=== PATIENT | male | born 1950 | race Caucasian/White ===

== ENCOUNTER 2016-05-01 05:30 | Inpatient (IN) | payer BC, MEDICARE ==
[2016-04-30 15:02] VITALS: Ht 182.9 cm; Wt 90.9 kg
[2016-05-01] VITALS (33 sets, daily range): BP systolic 90–146; BP diastolic 37–82; PULSE 90–126; RESP 6–20
[~2016-05-01] VITALS: Ht 182.9 cm; Wt 90.9 kg
[~2016-05-01 05:30] MED LIST: ATOR10TA65 PO; DOXA2TAB61 PO; FERR325T5 PO; HYDR-906 PO; INSU100I27 SC; LISI10TA2 PO; METF500T PO; NOVO3I SC
[2016-05-01] MEDS ORDERED: CEFAZOLIN 1 GM INJ ONE (07:00)
[2016-05-01] MEDS ORDERED: GELATIN SIZE 100 SPONGE ONE (07:30)
[2016-05-01] MEDS ORDERED: HEPARIN 1000 UNITS/ML 10 ML INJ ONE ×2 (07:30→10:10)
[2016-05-01] MEDS ORDERED: PAPAVERINE 60 MG INJ ONE ×2 (07:30→11:04)
[2016-05-01] MEDS ORDERED: THROMBIN 5000 UNIT VIAL ONE (07:30)
[2016-05-01] MEDS ORDERED: HEPARIN 1000 UNITS/ML 10 ML INJ IRR ONE (07:50)
[2016-05-01] MEDS ORDERED: MIDAZOLAM 1 MG/ML 2 ML INJ ONE (07:52)
[2016-05-01] MEDS ORDERED: morphine SULFATE/PF (10 MG/10 ML) INJ ONE (07:52)
[2016-05-01] MEDS ORDERED: ONDANSETRON 4 MG INJ ONE (07:52)
[2016-05-01] MEDS ORDERED: PROPOFOL 100 ML ONE (07:52)
[2016-05-01] MEDS ORDERED: METOCLOPRAMIDE 10 MG INJ ONE (07:53)
[2016-05-01] MEDS ORDERED: GELATIN SIZE 100 SPONGE TOP ONE (08:50)
[2016-05-01] MEDS ORDERED: EPHEDrine SULFATE 50 MG/5 ML SYG ONE (08:50)
[2016-05-01] MEDS ORDERED: THROMBIN 5000 UNIT VIAL TOP ONE (08:50)
[2016-05-01] MEDS ORDERED: PHENYLephrine (100 MCG/ML) 5ML SYG ONE ×2 (09:23→10:58)
[2016-05-01] MEDS ORDERED: FENTAnyl 50 MCG/ML VIAL ONE (10:33)
[2016-05-01] MEDS ORDERED: PAPAVERINE 60 MG INJ INJ ONE (11:00)
[2016-05-01] MEDS ORDERED: MEPERIDINE 25 MG INJ IV PRN (11:30)
[2016-05-01] MEDS ORDERED: HYDROmorphONE 1 MG/ML SYG IV PRN ×3 (11:30)
[2016-05-01] MEDS ORDERED: METOCLOPRAMIDE 10 MG INJ IV PRN (11:30)
[2016-05-01] MEDS ORDERED: ONDANSETRON 4 MG INJ IV PRN ×3 (11:30→12:00)
[2016-05-01] MEDS ORDERED: NALOXONE (0.4 MG/ML) INJ IV PRN (11:30)
[2016-05-01] MEDS ORDERED: DIPHENHYDRAMINE 50 MG INJ IV PRN ×2 (11:30)
[2016-05-01] MEDS ORDERED: HYDROmorphONE (0.2 MG/ML) 10ML SYG IV PRN ×3 (11:30)
[2016-05-01] MEDS ORDERED: EPHEDrine SULFATE 50 MG/5 ML SYG IV PRN (11:30)
[2016-05-01] MEDS ORDERED: PROPOFOL 40 ML ONE (11:33)
[2016-05-01] MEDS ORDERED: LACTATED RINGER'S 500 ML IV ONE (11:40)
[2016-05-01] MEDS ORDERED: ACETAMINOPHEN 325 MG TAB PO PRN (12:00)
[2016-05-01] MEDS: INSULIN ASPART [NOVOLOG] 3 ML PEN SC SCH ×2 (12:00→19:20)
[2016-05-01] MEDS: metFORMIN 500 MG TAB PO SCH ×2 (12:00→19:20)
[2016-05-01] MEDS: ASPIRIN (EC) 325 MG TAB PO SCH (12:22)
--- NOTE | 2016-05-01 12:43 | PN ---
Date/Time of Note Date/Time of Note DATE: 05/01/16 TIME: 12:37 Assessment/Plan VTE Prophylaxis VTE Prophylaxis Intervention: SCD's (on plavix) Lines/Catheters IV Catheter Type (from Nrsg): A Line Urinary Cath still in place: Yes (IN OR) Subjective 24 Hr Interval Summary Free Text/Dictation had left leg bypass today for ongoing left great and second toe ischemia with gangrenous toe, had partial amputation of the second toe with bipass today awake and alert in recovery room, vs stable has diabetes, recently well controlled with insulina and oral agents, complicated by vitreous hemorrhage od lungs cdlear, heart rate ok, left leg warm, long incision from groin, foot wrapped Exam/Review of Systems Vital Signs Vitals Vital Signs Date Time Temp Pulse Resp B/P Pulse Ox O2 Delivery O2 Flow Rate FiO2 05/01/16 12:13 97.9 05/01/16 11:51 103 19 94/55 100 Mask 10.0 Results Results 24 hrs Laboratory Tests Test 05/01/16 06:14 Bedside Glucose 118 Medications Medications Current Medications Naloxone HCl (Narcan) 0.1 mg Q2M PRN IV FOR RESP RATE 8 OR LESS; Start 05/01/16 at 11:30; Stop 05/02/16 at 11:29 Hydromorphone HCl (Dilaudid) 1 mg Q3H PRN IV BREAKTHROUGH PAIN; Start 05/01/16 at 11:30; Stop 05/02/16 at 11:29 Hydromorphone HCl (Dilaudid) 0.2 mg Q3H PRN IV PAIN LEVEL 1-5; Start 05/01/16 at 11:30; Stop 05/02/16 at 11:29 Hydromorphone HCl (Dilaudid) 0.4 mg Q3H PRN IV PAIN LEVEL 6-10; Start 05/01/16 at 11:30; Stop 05/02/16 at 11:29 Diphenhydramine HCl (Benadryl) 25 mg Q6H PRN IV ITCHING; Start 05/01/16 at 11:30 ; Stop 05/02/16 at 11:29 Ondansetron HCl (Zofran Inj) 4 mg Q6H PRN IV NAUSEA AND/OR VOMITING; Start 05/01 at 11:30; Stop 05/02/16 at 11:29 Acetaminophen (Tylenol Tab) 650 mg Q6H PRN PO PAIN AND OR ELEVATED TEMP; Start 05/01/16 at 12:00 Acetaminophen/ Hydrocodone Bitart ([place] (5/325)) 1 tab Q6H PRN PO PAIN LEVEL 6 -10; Start 05/01/16 at 12:00 Morphine Sulfate (morphine) 2 mg Q2H PRN IV BREAKTHROUGH PAIN; Start 05/01/16 at 12:00 Ondansetron HCl 4 mg 4 mg Q6H PRN IV NAUSEA AND/OR VOMITING; Start 05/01/16 at 12:00 Potassium Chloride/Dextrose/ Sod Cl (D5-1/2ns + KCl 20 Meq) 1,000 ml @ 100 mls/ hr Q10H IV ; Start 05/01/16 at 11:40 Heparin Sodium (Porcine) (Heparin (5000 Units/0.5 ml)) 5,000 unit BID@07,19 SC ; Start 05/01/16 at 19:00 Atorvastatin Calcium (Lipitor) 10 mg QHS PO ; Start 05/01/16 at 21:00 Doxazosin Mesylate (Cardura) 6 mg HS PO ; Start 05/01/16 at 21:00 Insulin Detemir (Levemir) 15 unit QHS SC ; Start 05/01/16 at 21:00 Lisinopril (Zestril) 10 mg DAILY PO ; Start 05/02/16 at 09:00 Aspirin (Ecotrin) 325 mg DAILY PO Last administered on 05/01/16 12:22; Admin Dose 325 MG; Start 05/01/16 at 12:00 Clopidogrel Bisulfate (plaVIX) 75 mg DAILY PO ; Start 05/01/16 at 12:00 GIANNI GOSS MD May 01, 2016 12:43
[2016-05-01] MEDS: CLOPIDOGREL 75 MG TAB PO SCH (13:17)
[2016-05-01] MEDS: D5W-0.45 NACL + KCL 20 MEQ 1,000 ML IV SCH ×3 (14:00→23:24)
--- NOTE | 2016-05-01 14:58 | OPR ---
DATE OF OPERATION: 05/01/2016 PREOPERATIVE DIAGNOSIS: Left second toe gangrene. POSTOPERATIVE DIAGNOSIS: Left second toe gangrene. PROCEDURE PERFORMED: Left popliteal to posterior tibial bypass using nonreverse greater saphenous v ein harvested from the left thigh. SURGEON: Alejandro Mederos MD IT ARCHITECT: Dr. Victor Manuel Hurtado ANESTHESIA: Spinal anesthesia. ESTIMATED BLOOD LOSS: 100 mL. COMPLICATIONS: There were no intraprocedural complications. INDICATIONS: This is a 65-year-old diabetic gentleman with peripheral vascular disease. He has a g angrenous left second toe. He had a previous arterial percutaneous intervention that initially was successful, but the toe demarcated. Tibial vessels have now re-occluded and I recommended bypass fro m the popliteal to PT prior to amputating the toe, which he came in for today. DESCRIPTION OF PROCEDURE: The patient was brought to the operating room and placed on the table in the supine position. The left leg was prepped and draped in the usual sterile fashion. I evaluated the left great saphenous vein previously and it looked to be too small, but I checked it again afte r he had gotten a spinal and was sedated and the vein was a good caliber in the thigh, was a little bit small in the calf and sort of in the mid calf. I thought it would be adequate to go from t he popliteal to the PT. He has some mild disease in the popliteal, which I had angioplastied recent ly, and a little stenosis at the adductor that is calcified, but fairly mild. He had a good poplite al pulse so I decided to use the vein rather than using a [place] to go from higher up. Once he wa s prepped and draped, I began by exposing the posterior tibial artery at the ankle. I made an incisi on over the artery and carefully dissected down through the subcutaneous tissue using electrocautery . I identified the posterior tibial artery. It was actually soft, was a little calcified, but it wa s easily clampable and soft. I then went through the medial calf and made an incision over the grea t saphenous vein at the medial calf and carefully dissected out the great saphenous vein down to the mid calf and ligated all the side branches. I then cut the fascia overlying the calf muscles and r etracted them posteriorly, entering the popliteal space. I then carefully dissected out the poplite al artery. It had a very nice pulse. It was a good caliber and not diseased. Then we proceeded to harvest the vein. We harvested the vein from, again, from the mid calf all the way up to the groin , ligating all the side branches with 2-0 or 3-0 silk ties and dividing them. At the saphenofemoral junction a clamp was placed across the base of the saphenofemoral junction and the vein was t ransected and then the venotomy was oversewn with a 5-0 Prolene suture in a running semivascular mukund gical fashion. Once the vein was fully harvested I flushed from below. I found a couple of side bra nches that I had missed and I tied those off with 3-0 silk ties. The vein appeared to be a reasonabl e caliber. It was a little bit small distally, probably 2.5 to 3 mm, but a good 3 to 4 mm proximall y, so I then created a tunnel between my 2 incisions in the upper calf and at the ankle using a Craw javier clamp and I left a red rubber catheter in the tract. I gave the patient 3,000 units of heparin intravenously. We then began with the popliteal artery anastomosis. I clamped the popliteal arter y proximally and distally and made a cm-long anterior arteriotomy. I spatulated the proximal end of the vein to fit the arteriotomy. I cut the first valve under direct vision. I then anastomosed th e proximal end of the vein. The side of the popliteal artery using a 6-0 Prolene suture in a runnin g standard vascular surgical fashion. I removed the clamps after backbleeding and flushing and ther e was a good pulse in the graft about 10 cm distal, where the valves were incompetent more proximall y and incompetent distally. I then passed the [place] valvulotome from below. I made about 3 pass es and cut all the valves. There was good flow out the end of the vein. Again, it was small and a l ittle bit of spasm. I passed a 3-[place] Veronika several times just to dilate it up a little bit mor e and again, it was small, but good. I then brought it through the tract, making sure I did not twi st it anywhere. I then clamped the posterior tibial artery proximally and distally, and made an ant erior arteriotomy about 1 cm in length. I spatulated the end of the vein to fit the arteriotomy and then anastomosed the end of the vein to the side of the artery, again using 6-0 Prolene suture in a running standard vascular surgical fashion. I backbled and flushed. I passed the 1.5-mm dilator di fiona after removing the clamp and got good backflow from the posterior tibial distally. I complet ed the anastomosis, removed all the clamps. I listened with the Doppler and there was a nice signal in the posterior tibial, which essentially went flat and monophasic when the graft was clamped. I was happy with the results. At this point I then closed all the skin incisions in 2 layers using an inner layer of 3-0 Vicryl and an outer layer of surgical lucía for all the incisions except the a nkle incision, which I closed with 3-0 nylon interrupted vertical mattress sutures. Sterile dressin gs were applied to all the wounds. I then amputated the second toe. I took a 15 blade and cut right where the necrosis stopped. I disarticulated at the metatarsal head and just removed all the necro tic tissue. I then used a rongeur to just cut away all the remaining necrotic tissue and infected s tuff from the base of the wound. There was good bleeding. I then packed with iodoform gauze and I then closed it. The foot was then wrapped with gauze and Kerlix. He was transferred to the recover y room in stable condition. He tolerated the procedure well, without any complications. Dictated By: ALEJANDRO MARCUM/KAREN Conf#: [id number] DID#: [id number] CC: GIANNI GOSS MD; CLARICE JUNIOR DPM;*EndCC*
--- NOTE | 2016-05-01 18:45 | RADRPT ---
Vent Rate: 75 bpm RR Interval: 0 msec DC Interval: 166 msec QRS Duration: 80 msec QT Interval: 394 msec QTC Interval: 439 msec P-R-T Ralls: 46 - 63 - 55 degrees Normal sinus rhythm Normal ECG Electronically Signed By: Ben Guerrero [id number]
[2016-05-01] MEDS: HEPARIN 5,000 UNIT/0.5 ML SYG SC SCH (20:40)
[2016-05-01] MEDS ORDERED: DOXAZOSIN 2 MG TAB PO SCH (21:00)
[2016-05-01] MEDS ORDERED: ATORVASTATIN 10 MG TAB PO SCH (21:00)
[2016-05-01] MEDS: INSULIN DETEMIR [LEVEMIR] 3ML CART SC SCH (21:16)
[2016-05-02] VITALS (33 sets, daily range): BP systolic 105–160; BP diastolic 41–87; PULSE 84–118; RESP 13–23
[2016-05-02] MEDS: HEPARIN 5,000 UNIT/0.5 ML SYG SC SCH ×2 (06:35→18:11)
[2016-05-02 06:42] LABS: POTASSIUM 4.4 mmol/L (3.5-5.1)
[2016-05-02 06:45] LABS: CALCIUM 8.2 mg/dl (8.4-10.2); CREATININE 0.64 mg/dl (0.61-1.24)
[2016-05-02 07:44] LABS: WHITE BLOOD COUNT 5.1 10^3/ul (4.8-10.8)
[2016-05-02 07:45] LABS: BASOPHILS % 0.4 % (0.0-2.0); EOSINOPHILS % 5.1 % (0.0-7.0); HEMATOCRIT 26.6 % (42.0-52.0); HEMOGLOBIN 8.2 g/dl (14.0-18.0); MEAN CORPUSCULAR HEMOGLOBIN 26.3 pg (29.0-33.0); MEAN CORPUSCULAR HGB CONC 30.8 g/dl (32.0-37.0); MEAN CORPUSCULAR VOLUME 85.3 fl (82.0-101.0); MEAN PLATELET VOLUME 10.6 fl (7.4-10.4); MONOCYTES % 10.3 % (0.0-11.0); NEUTROPHILS % 68.8 % (39.0-77.0); PLATELET COUNT 229 10^3/UL (140-440); RED BLOOD COUNT 3.12 10^6/ul (4.70-6.10); RED CELL DISTRIBUTION WIDTH 16.3 % (11.5-14.5); UNCORRECTED WBC 5.1 10^3/ul (4.8-10.8)
[2016-05-02 07:46] LABS: EOSINOPHILS # 0.3 10^3/ul (0.0-0.5); LYMPHOCYTES # 0.8 10^3/ul (0.8-2.9); MONOCYTE # 0.5 10^3/ul (0.3-0.9); NEUTROPHIL # 3.5 10^3/ul (1.6-7.5)
--- NOTE | 2016-05-02 07:53 | CONS ---
Date/Time of Note Date/Time of Note DATE: 05/02/16 TIME: 07:45 Assessment/Plan Assessment/Plan Problems: (1) Aftercare following surgery Status: Acute Comment: He is status post vascular bypass with amputation of the toe. At this time he is doing well and should continue on this and she can be transferred out of the intensive care unit as per the vascular surgeon Dr. Linares (2) Overweight (BMI 25.0-29.9) Status: Chronic Comment: Noted (3) Hyperlipidemia associated with type 2 diabetes mellitus Status: Chronic Comment: Continue with statin therapy aggressively (4) Type 2 diabetes mellitus with diabetic polyneuropathy Status: Chronic Comment: Continue his medications and just to bring him into goal range Qualifiers: Qualified Code: E11.42 - Type 2 diabetes mellitus with diabetic polyneuropathy, with long-term current use of insulin (5) Peripheral vascular disease due to secondary diabetes mellitus Status: Chronic Comment: Noted is been bypass will do vigorous risk factor modification. (6) BPH (benign prostatic hyperplasia) Status: Chronic Comment: Continue with treatment. Qualifiers: Qualified Code: N40.1 - Benign non-nodular prostatic hyperplasia with lower urinary tract symptoms (7) Essential hypertension Status: Chronic Comment: Continue with treatment. Consultation Date/Type/Reason Admit Date/Time May 01, 2016 at 05:30 Date of Consultation: May 01, 2016 Type of Consultation: Internal medicine Reason for Consultation Patient with multiple medical problems undergoing vascular intervention Referring Provider: ALEJANDRO LINARES MD Hx of Present Illness 65-year-old male with a prior history of poorly controlled diabetes with multiple complications. He has known peripheral vascular disease especially affecting the left lower extremity. He had undergone a percutaneous intervention of the left lower leg arterially however developed gangrene requiring further intervention and the percutaneous did not have a durable outcome. He was brought in and operated on is now in the intensive care unit postoperatively. Constitutional: no complaints (Denies fever chills or sweats) Eyes: no complaints (No new complaints please note he has a history of diabetic eye disease especially in the right eye) ENT: no complaints (No complaints) Respiratory: no complaints (Denies shortness of breath pleuritic type chest pain wheezing etc.) Cardiovascular: no complaints (No chest pain pressure neck pain lower jaw pain etc. no palpitations no orthopnea no PND) Gastrointestinal: no complaints Genitourinary: no complaints (Please note he does have BPH symptoms with AUA score of roughly 8 while on medications he is not clear what his medications are ) Musculoskeletal: no complaints, other (He reports his left leg postoperative feels heavy but is able to move all extremities) Skin: no complaints (Denies any skin issues although he does have onychomycosis ) Neurologic: no complaints Endocrine: no complaints Lymphatic: no complaints Psychological: nl mood/affect, no complaints Immunologic: no complaints Past Medical History History of cecal cancer-status post resection; overweight; diabetes mellitus type 2; hyperlipidemia; hypertension; BPH; keloid scar former; diabetic retinopathy with hemorrhage OD; lumbar disc disease; cervical spine disc disease ; peripheral vascular disease; please note no history of heart disease and he had an echocardiogram in the last 4 months that was perfectly normal Medical History: diabetes, high cholesterol, hypertension Past Surgical History Status post cecal colectomy; status post percutaneous intervention for vascular disease Past Surgical Hx: angioplasty (Noncardiac) Family History Significant Family History: diabetes, hypertension Social History Alcohol Use: none Smoking Status: Never smoker Drug Use: none Other Social History Levemir insulin; Humalog insulin; iron sulfate; hydrocodone as needed medication list; atorvastatin; doxazosin; metformin; lisinopril; Exam/Review of Systems Vital Signs Vitals Vital Signs Date Time Temp Pulse Resp B/P Pulse Ox O2 Delivery O2 Flow Rate FiO2 05/02/16 06:00 99.6 110 18 118/46 95 Room Air 05/01/16 17:00 2.0 Intake and Output 05/01/16 05/01/16 05/02/16 15:00 23:00 07:00 Intake Total 2100 ml 1440 ml 700 ml Output Total 525 ml 490 ml 390 ml Balance 1575 ml 950 ml 310 ml Results Result Diagram: 05/02/16 0400 Results 24 hrs Laboratory Tests Test 05/01/16 17:07 05/01/16 20:33 05/02/16 04:00 Bedside Glucose 178 269 H Anion Gap 10 Blood Urea Nitrogen 14 Calcium Level 8.2 L Carbon Dioxide Level 27 Chloride Level 105 Creatinine 0.64 Glucose Level 238 H Potassium Level 4.4 Sodium Level 138 Medications Medications Current Medications Naloxone HCl (Narcan) 0.1 mg Q2M PRN IV FOR RESP RATE 8 OR LESS; Start 05/01/16 at 11:30; Stop 05/02/16 at 11:29 Hydromorphone HCl (Dilaudid) 1 mg Q3H PRN IV BREAKTHROUGH PAIN; Start 05/01/16 at 11:30; Stop 05/02/16 at 11:29 Hydromorphone HCl (Dilaudid) 0.2 mg Q3H PRN IV PAIN LEVEL 1-5; Start 05/01/16 at 11:30; Stop 05/02/16 at 11:29 Hydromorphone HCl (Dilaudid) 0.4 mg Q3H PRN IV PAIN LEVEL 6-10; Start 05/01/16 at 11:30; Stop 05/02/16 at 11:29 Diphenhydramine HCl (Benadryl) 25 mg Q6H PRN IV ITCHING; Start 05/01/16 at 11:30 ; Stop 05/02/16 at 11:29 Ondansetron HCl (Zofran Inj) 4 mg Q6H PRN IV NAUSEA AND/OR VOMITING; Start 05/01 at 11:30; Stop 05/02/16 at 11:29 Acetaminophen (Tylenol Tab) 650 mg Q6H PRN PO PAIN AND OR ELEVATED TEMP; Start 05/01/16 at 12:00 Acetaminophen/ Hydrocodone Bitart ([place] (5/325)) 1 tab Q6H PRN PO PAIN LEVEL 6 -10; Start 05/01/16 at 12:00 Morphine Sulfate (morphine) 2 mg Q2H PRN IV BREAKTHROUGH PAIN; Start 05/01/16 at 12:00 Ondansetron HCl 4 mg 4 mg Q6H PRN IV NAUSEA AND/OR VOMITING; Start 05/01/16 at 12:00 Potassium Chloride/Dextrose/ Sod Cl (D5-1/2ns + KCl 20 Meq) 1,000 ml @ 100 mls/ hr Q10H IV Last administered on 05/01/16 23:24; Admin Dose 100 MLS/HR; Start at 11:40 Heparin Sodium (Porcine) (Heparin (5000 Units/0.5 ml)) 5,000 unit BID@07,19 SC Last administered on 05/02/16 06:35; Admin Dose 5,000 UNIT; Start 05/01/16 at 19:00 Atorvastatin Calcium (Lipitor) 10 mg QHS PO Last administered on 05/01/16 20:38 ; Admin Dose 10 MG; Start 05/01/16 at 21:00 Doxazosin Mesylate (Cardura) 6 mg HS PO Last administered on 05/01/16 21:14; Admin Dose 6 MG; Start 05/01/16 at 21:00 Insulin Detemir (Levemir) 15 unit QHS SC Last administered on 05/01/16 21:16; Admin Dose 15 UNIT; Start 05/01/16 at 21:00 Lisinopril (Zestril) 10 mg DAILY PO ; Start 05/02/16 at 09:00 Aspirin (Ecotrin) 325 mg DAILY PO Last administered on 05/01/16 12:22; Admin Dose 325 MG; Start 05/01/16 at 12:00 Clopidogrel Bisulfate (plaVIX) 75 mg DAILY PO Last administered on 05/01/16 13: 17; Admin Dose 75 MG; Start 05/01/16 at 12:00 NARA LYNN MD May 02, 2016 07:53
[2016-05-02] MEDS: HYDROCODONE/APAP (5/325) TAB PO PRN ×2 (08:23→17:35)
[2016-05-02] MEDS: CLOPIDOGREL 75 MG TAB PO SCH (08:23)
[2016-05-02] MEDS: metFORMIN 500 MG TAB PO SCH ×3 (08:23→17:35)
[2016-05-02] MEDS: SOD CHLORIDE 0.45% 1,000 ML IV SCH ×2 (08:26→20:33)
[2016-05-02] MEDS: INSULIN ASPART [NOVOLOG] 3 ML PEN SC SCH ×3 (08:32→17:26)
[2016-05-02] MEDS: ASPIRIN (EC) 325 MG TAB PO SCH (09:00)
[2016-05-02] MEDS ORDERED: LISINOPRIL 10 MG TAB PO SCH ×2 (09:00→21:00)
[2016-05-02] MEDS ORDERED: ASPIRIN (EC) 325 MG TAB PO SCH (09:00)
--- NOTE | 2016-05-02 10:42 | PN ---
Date/Time of Note Date/Time of Note DATE: 05/02/16 TIME: 10:39 Assessment/Plan Lines/Catheters IV Catheter Type (from Nrs): A Line [place] in Place (from Nrs): Yes Assessment/Plan Chief Complaint/Hosp Course Doing well s/p L pop-PT bypass and 2nd toe amputation, 2+ graft pulse, foot well perfused - remove A-line and heplock IV - OK to tx to tele floor in main tower - PT / OK to weight bear - Dr. Montalvo to see regarding revision of toe amputation Problems: Subjective 24 Hr Interval Summary c/o incisional pain and heaviness in the leg. no pain in the foot. Exam/Review of Systems Vital Signs Vitals Vital Signs Date Time Temp Pulse Resp B/P Pulse Ox O2 Delivery O2 Flow Rate FiO2 05/02/16 09:45 109 18 129/46 95 05/02/16 09:00 97.6 05/02/16 06:00 Room Air 05/01/16 17:00 2.0 Intake and Output 05/01/16 05/01/16 05/02/16 15:00 23:00 07:00 Intake Total 2100 ml 1440 ml 700 ml Output Total 525 ml 490 ml 390 ml Balance 1575 ml 950 ml 310 ml Exam Free Text/Dictation L leg dressings intact, some staning at the calf but no hematoma. 2+ graft pulse , L foot / toes warm / pink and hyperemic Results Result Diagram: 05/02/1639905/02/16399 ALEJANDRO LINARES MD May 02, 2016 10:42
[2016-05-02] MEDS: TERBINAFINE 250 MG TAB PO SCH ×2 (11:44→20:27)
[2016-05-02] MEDS: morphine 2 MG INJ IV PRN ×2 (11:46→23:20)
[2016-05-02] MEDS ORDERED: GLUCOSE GEL 15 GRAM TUBE PO PRN ×2 (15:30)
[2016-05-02] MEDS ORDERED: GLUCAGON 1 MG INJ IM PRN (15:30)
[2016-05-02] MEDS ORDERED: GLUCOSE GEL 15 GRAM TUBE BUCCAL PRN (15:30)
[2016-05-02] MEDS ORDERED: DEXTROSE 50% 50 ML SYRINGE IV PRN ×2 (15:30)
[2016-05-02] MEDS: DOXAZOSIN 4 MG TAB PO SCH (20:26)
[2016-05-02] MEDS: ATORVASTATIN 20 MG TAB PO SCH (20:27)
[2016-05-02] MEDS: INSULIN DETEMIR [LEVEMIR] 3ML CART SC SCH (20:33)
[2016-05-03] VITALS (18 sets, daily range): BP systolic 125–171; BP diastolic 52–84; PULSE 83–112; RESP 11–28
[2016-05-03] MEDS: HYDROCODONE/APAP (5/325) TAB PO PRN ×4 (03:09→23:08)
[2016-05-03] MEDS: HEPARIN 5,000 UNIT/0.5 ML SYG SC SCH ×2 (06:41→21:01)
[2016-05-03 07:29] LABS: BASOPHILS % 0.5 % (0.0-2.0); EOSINOPHILS # 0.5 10^3/ul (0.0-0.5); EOSINOPHILS % 9.9 % (0.0-7.0); HEMATOCRIT 24.8 % (42.0-52.0); HEMOGLOBIN 8.3 g/dl (14.0-18.0); LYMPHOCYTES # 1.1 10^3/ul (0.8-2.9); MEAN CORPUSCULAR HEMOGLOBIN 26.9 pg (29.0-33.0); MEAN CORPUSCULAR HGB CONC 33.3 g/dl (32.0-37.0); MEAN CORPUSCULAR VOLUME 80.9 fl (82.0-101.0); MONOCYTE # 0.5 10^3/ul (0.3-0.9); MONOCYTES % 10.9 % (0.0-11.0); NEUTROPHIL # 2.6 10^3/ul (1.6-7.5); NEUTROPHILS % 55.7 % (39.0-77.0); PLATELET COUNT 220 10^3/UL (140-440); RED BLOOD COUNT 3.07 10^6/ul (4.70-6.10); RED CELL DISTRIBUTION WIDTH 17.9 % (11.5-14.5); UNCORRECTED WBC 4.6 10^3/ul (4.8-10.8); WHITE BLOOD COUNT 4.6 10^3/ul (4.8-10.8)
[2016-05-03 07:35] LABS: CONDITION 1; LH ANALYZER COMMENTS 1
[2016-05-03 08:07] LABS: CREATININE 0.63 mg/dl (0.61-1.24)
[2016-05-03 08:08] LABS: CALCIUM 8.5 mg/dl (8.4-10.2)
[2016-05-03] MEDS: ASPIRIN (EC) 325 MG TAB PO SCH (08:23)
[2016-05-03] MEDS: TERBINAFINE 250 MG TAB PO SCH ×2 (08:23→20:48)
[2016-05-03] MEDS: metFORMIN 500 MG TAB PO SCH ×3 (08:23→17:44)
[2016-05-03] MEDS: CLOPIDOGREL 75 MG TAB PO SCH (08:23)
[2016-05-03] MEDS: INSULIN ASPART [NOVOLOG] 3 ML PEN SC SCH ×3 (08:25→18:41)
--- NOTE | 2016-05-03 11:55 | PN ---
Date/Time of Note Date/Time of Note DATE: 05/03/16 TIME: 11:53 Assessment/Plan VTE Prophylaxis VTE Prophylaxis Intervention: LMWH Lines/Catheters IV [facility] Type (from [facility]): Peripheral IV Urinary Cath still in place: Yes Reason Cath still needed: other (indicate) Assessment/Plan Chief Complaint/Hosp Course 65-year-old male with a prior history of poorly controlled diabetes with multiple complications. He has known peripheral vascular disease especially affecting the left lower extremity. He had undergone a percutaneous intervention of the left lower leg arterially however developed gangrene requiring further intervention and the percutaneous did not have a durable outcome. He was brought in and operated on is now in the intensive care unit postoperatively. Problems: (1) Hyperlipidemia associated with type 2 diabetes mellitus Status: Chronic Comment: On statin therapy to protect the neurovascular bypass (2) Essential hypertension Status: Chronic Comment: Adequate control. (3) BPH (benign prostatic hyperplasia) Status: Chronic Comment: Noted and stable. Will DC Albarran Qualifiers: Prostatic enlargement morphology: non-nodular Lower urinary tract symptom presence: symptoms present Qualified Code: N40.1 - Benign non-nodular prostatic hyperplasia with lower urinary tract symptoms (4) Peripheral vascular disease due to secondary diabetes mellitus Status: Chronic Comment: Status post bypass. As per Dr. Mederos note will get Dr. Montalvo to evaluate for revision of the amputation (5) Anemia due to blood loss, chronic Status: Chronic Comment: Noted. (6) Type 2 diabetes mellitus with diabetic polyneuropathy Status: Chronic Comment: Good control Qualifiers: Diabetes mellitus joint terminal attack controller insulin use: with joint terminal attack controller use Qualified Code : E11.42 - Type 2 diabetes mellitus with diabetic polyneuropathy, with long- term current use of insulin Subjective 24 Hr Interval Summary Free Text/Dictation Patient resting and now up in telemetry from ICU. Constitutional: no complaints (No fever chills or sweats) Respiratory: no complaints Cardiovascular: no complaints Gastrointestinal: no complaints Exam/Review of Systems Vital Signs Vitals Vital Signs Date Time Temp Pulse Resp B/P Pulse Ox O2 Delivery O2 Flow Rate FiO2 05/03/16 11:19 98.0 89 20 144/76 97 05/03/16 11:00 Room Air 05/01/16 17:00 2.0 Intake and Output 05/02/16 05/02/16 05/03/16 15:00 23:00 07:00 Intake Total 1350 ml 450 ml Output Total 1400 ml 1050 ml Balance -50 ml -600 ml Exam Constitutional: alert, oriented Respiratory: clear to auscultation, normal air movement Cardiovascular: nl pulses, regular rate and rhythm Results Result Diagram: 05/03/16 0705 05/03/16 0705 Results 24 hrs Laboratory Tests Test 05/02/16 17:18 05/02/16 20:30 05/03/16 07:05 05/03/16 07:48 Bedside Glucose 150 150 109 Anion Gap 11 Basophils # 0.0 Basophils % 0.5 Blood Morphology Comment Blood Urea Nitrogen 10 Calcium Level 8.5 Carbon Dioxide Level 29 Chloride Level 104 Creatinine 0.63 Eosinophils # 0.5 Eosinophils % 9.9 H Glucose Level 99 # Hematocrit 24.8 L Hemoglobin 8.3 L Lymphocytes # 1.1 Lymphocytes % 23.0 Mean Corpuscular Hemoglobin 26.9 L Mean Corpuscular Hemoglobin Concent 33.3 Mean Corpuscular Volume 80.9 L Mean Platelet Volume 8.0 # Monocytes # 0.5 Monocytes % 10.9 Neutrophils # 2.6 Neutrophils % 55.7 Nucleated Red Blood Cells # 0.0 Nucleated Red Blood Cells % 0.0 Platelet Count 220 Potassium Level 4.0 Red Blood Count 3.07 L Red Cell Distribution Width 17.9 H Sodium Level 140 White Blood Count 4.6 L Medications Medications Current Medications Acetaminophen (Tylenol Tab) 650 mg Q6H PRN PO PAIN AND OR ELEVATED TEMP; Start 05/01/16 at 12:00 Acetaminophen/ Hydrocodone Bitart ([place] (5/325)) 1 tab Q6H PRN PO PAIN LEVEL 6 -10 Last administered on 05/03/16 08:23; Admin Dose 1 TAB; Start 05/01/16 at 12: 00 Morphine Sulfate (morphine) 2 mg Q2H PRN IV BREAKTHROUGH PAIN Last administered on 05/02/16 23:20; Admin Dose 2 MG; Start 05/01/16 at 12:00 Ondansetron HCl (Zofran Inj) 4 mg Q6H PRN IV NAUSEA AND/OR VOMITING; Start 05/01 at 12:00 Heparin Sodium (Porcine) (Heparin (5000 Units/0.5 ml)) 5,000 unit BID@ SC Last administered on 05/03/16 06:41; Admin Dose 5,000 UNIT; Start 05/01/16 at 19:00 Insulin Detemir (Levemir) 15 unit QHS SC Last administered on 05/02/16 20:33; Admin Dose 15 UNIT; Start 05/01/16 at 21:00 Aspirin (Ecotrin) 325 mg DAILY PO Last administered on 05/03/16 08:23; Admin Dose 325 MG; Start 05/01/16 at 12:00 Clopidogrel Bisulfate (plaVIX) 75 mg DAILY PO Last administered on 05/03/16 08: 23; Admin Dose 75 MG; Start 05/01/16 at 12:00 Atorvastatin Calcium (Lipitor) 20 mg DAILY@21 PO Last administered on 05/02/16 20:27; Admin Dose 20 MG; Start 05/02/16 at 21:00 Doxazosin Mesylate (Cardura) 8 mg 21 PO Last administered on 05/02/16 20:26; Admin Dose 8 MG; Start 05/02/16 at 21:00 Lisinopril 10 mg 10 mg QHS PO Last administered on 05/02/16 20:27; Admin Dose 10 MG; Start 05/02/16 at 21:00 Sodium Chloride (1/2 NS) 1,000 ml @ 50 mls/hr Q20H IV Last administered on 05/02 20:33; Admin Dose 50 MLS/HR; Start 05/02/16 at 08:00 Terbinafine HCl (Lamisil) 250 mg BID PO Last administered on 05/03/16 08:23; Admin Dose 250 MG; Start 05/02/16 at 09:00; Stop 05/09/16 at 08:59 Miscellaneous Information 1 ea NOTE XX ; Start 05/02/16 at 15:30 Glucose (Glutose) 15 gm Q15M PRN PO DECREASED GLUCOSE; Start 05/02/16 at 15:30 Glucose (Glutose) 22.5 gm Q15M PRN PO DECREASED GLUCOSE; Start 05/02/16 at 15:30 Dextrose (D50w Syringe) 25 ml Q15M PRN IV DECREASED GLUCOSE; Start 05/02/16 at 15:30 Dextrose (D50w Syringe) 50 ml Q15M PRN IV DECREASED GLUCOSE; Start 05/02/16 at 15:30 Glucagon (Glucagen) 1 mg Q15M PRN IM DECREASED GLUCOSE; Start 05/02/16 at 15:30 Glucose (Glutose) 15 gm Q15M PRN BUCCAL DECREASED GLUCOSE; Start 05/02/16 at 15: 30 NARA LYNN MD May 03, 2016 11:55
[2016-05-03] MEDS: LISINOPRIL 20 MG TAB PO SCH (20:49)
[2016-05-03] MEDS: ATORVASTATIN 20 MG TAB PO SCH (20:50)
[2016-05-03] MEDS: DOXAZOSIN 4 MG TAB PO SCH (20:50)
[2016-05-03] MEDS: INSULIN DETEMIR [LEVEMIR] 3ML CART SC SCH (21:38)
[2016-05-04] VITALS (13 sets, daily range): BP systolic 133–168; BP diastolic 68–77; PULSE 78–92; RESP 16–20
[2016-05-04] MEDS: HYDROCODONE/APAP (5/325) TAB PO PRN ×3 (06:39→21:48)
[2016-05-04 06:52] LABS: BASOPHILS % 0.5 % (0.0-2.0); EOSINOPHILS # 0.6 10^3/ul (0.0-0.5); EOSINOPHILS % 12.1 % (0.0-7.0); HEMATOCRIT 25.6 % (42.0-52.0); HEMOGLOBIN 8.5 g/dl (14.0-18.0); LYMPHOCYTES # 1.1 10^3/ul (0.8-2.9); LYMPHOCYTES % 23.3 % (15.0-51.0); MEAN CORPUSCULAR HEMOGLOBIN 27.1 pg (29.0-33.0); MEAN CORPUSCULAR HGB CONC 33.3 g/dl (32.0-37.0); MEAN CORPUSCULAR VOLUME 81.4 fl (82.0-101.0); MEAN PLATELET VOLUME 8.3 fl (7.4-10.4); MONOCYTE # 0.5 10^3/ul (0.3-0.9); NEUTROPHIL # 2.5 10^3/ul (1.6-7.5); NEUTROPHILS % 54.1 % (39.0-77.0); PLATELET COUNT 228 10^3/UL (140-440); RED BLOOD COUNT 3.15 10^6/ul (4.70-6.10); RED CELL DISTRIBUTION WIDTH 17.2 % (11.5-14.5); UNCORRECTED WBC 4.6 10^3/ul (4.8-10.8); WHITE BLOOD COUNT 4.6 10^3/ul (4.8-10.8)
[2016-05-04 06:56] LABS: CONDITION 1; LH ANALYZER COMMENTS 1
[2016-05-04 06:59] LABS: ALBUMIN 2.9 g/dl (3.3-4.9)
[2016-05-04 07:00] LABS: POTASSIUM 4.2 mmol/L (3.5-5.1)
[2016-05-04 07:02] LABS: ALBUMIN/GLOBULIN RATIO 0.96; BILIRUBIN,INDIRECT 0.2 mg/dl (0-1.1); BILIRUBIN,TOTAL 0.2 mg/dl (0.2-1.3); CREATININE 0.61 mg/dl (0.61-1.24); TOTAL PROTEIN 5.9 g/dl (6.1-8.1)
[2016-05-04 07:03] LABS: CALCIUM 8.9 mg/dl (8.4-10.2)
[2016-05-04] MEDS: metFORMIN 500 MG TAB PO SCH ×3 (07:46→17:29)
[2016-05-04] MEDS: INSULIN ASPART [NOVOLOG] 3 ML PEN SC SCH ×3 (07:49→17:28)
[2016-05-04] MEDS: ASPIRIN (EC) 325 MG TAB PO SCH (08:41)
[2016-05-04] MEDS: CLOPIDOGREL 75 MG TAB PO SCH (08:41)
[2016-05-04] MEDS: TERBINAFINE 250 MG TAB PO SCH ×2 (08:43→21:48)
[2016-05-04] MEDS: HEPARIN 5,000 UNIT/0.5 ML SYG SC SCH ×2 (08:44→21:52)
--- NOTE | 2016-05-04 08:50 | PN ---
Date/Time of Note Date/Time of Note DATE: 05/02/16 TIME: 08:47 A 65 year male s/p femoral post tibia bypass under GA and Spinal, pod #1 pt is donig wellno pain headache N/V .back o inflammaton or infection. Assessment/Plan VTE Prophylaxis VTE Prophylaxis Intervention: SCD's Lines/Catheters IV Catheter Type (from Nrsg): Peripheral IV Urinary Cath still in place: No Exam/Review of Systems Vital Signs Vitals Vital Signs Date Time Temp Pulse Resp B/P Pulse Ox O2 Delivery O2 Flow Rate FiO2 05/04/16 08:41 80 05/04/16 08:01 98.3 17 149/74 97 05/03/16 11:00 Room Air 05/01/16 17:00 2.0 Intake and Output 05/03/16 05/03/16 05/04/16 15:00 23:00 07:00 Intake Total 440 ml 720 ml Output Total 350 ml 1025 ml 550 ml Balance 90 ml -305 ml -550 ml Results Result Diagram: 05/04/16 0600 05/04/16 0600 Results 24 hrs Laboratory Tests Test 05/03/16 12:15 05/03/16 17:46 05/03/16 20:54 05/04/16 06:00 Bedside Glucose 114 153 157 Alanine Aminotransferase (ALT/SGPT) 19 Albumin 2.9 L Albumin/Globulin Ratio 0.96 Alkaline Phosphatase 96 Anion Gap 13 Aspartate Amino Transf (AST/SGOT) 13 L Basophils # 0.0 Basophils % 0.5 Blood Morphology Comment Blood Urea Nitrogen 11 Calcium Level 8.9 Carbon Dioxide Level 30 Chloride Level 105 Creatinine 0.61 Direct Bilirubin 0.00 Eosinophils # 0.6 H Eosinophils % 12.1 H Globulin 3.00 Glucose Level 97 Hematocrit 25.6 L Hemoglobin 8.5 L Indirect Bilirubin 0.2 Lymphocytes # 1.1 Lymphocytes % 23.3 Mean Corpuscular Hemoglobin 27.1 L Mean Corpuscular Hemoglobin Concent 33.3 Mean Corpuscular Volume 81.4 L Mean Platelet Volume 8.3 Monocytes # 0.5 Monocytes % 10.0 Neutrophils # 2.5 Neutrophils % 54.1 Nucleated Red Blood Cells # 0.0 Nucleated Red Blood Cells % 0.0 Platelet Count 228 Potassium Level 4.2 Red Blood Count 3.15 L Red Cell Distribution Width 17.2 H Sodium Level 144 Total Bilirubin 0.2 Total Protein 5.9 L White Blood Count 4.6 L Test 05/04/16 07:45 Bedside Glucose 112 Medications Medications Current Medications Acetaminophen (Tylenol Tab) 650 mg Q6H PRN PO PAIN AND OR ELEVATED TEMP; Start 05/01/16 at 12:00 Acetaminophen/ Hydrocodone Bitart ([place] (5/325)) 1 tab Q6H PRN PO PAIN LEVEL 6 -10 Last administered on 05/04/16 06:39; Admin Dose 1 TAB; Start 05/01/16 at 12: 00 Morphine Sulfate (morphine) 2 mg Q2H PRN IV BREAKTHROUGH PAIN Last administered on 05/02/16 23:20; Admin Dose 2 MG; Start 05/01/16 at 12:00 Ondansetron HCl (Zofran Inj) 4 mg Q6H PRN IV NAUSEA AND/OR VOMITING; Start 05/01 at 12:00 Insulin Detemir (Levemir) 15 unit QHS SC Last administered on 05/03/16 21:38; Admin Dose 15 UNIT; Start 05/01/16 at 21:00 Aspirin (Ecotrin) 325 mg DAILY PO Last administered on 05/04/16 08:41; Admin Dose 325 MG; Start 05/01/16 at 12:00 Clopidogrel Bisulfate (plaVIX) 75 mg DAILY PO Last administered on 05/04/16 08: 41; Admin Dose 75 MG; Start 05/01/16 at 12:00 Atorvastatin Calcium (Lipitor) 20 mg DAILY@21 PO Last administered on 05/03/16 20:50; Admin Dose 20 MG; Start 05/02/16 at 21:00 Doxazosin Mesylate 8 mg 8 mg 21 PO Last administered on 05/03/16 20:50; Admin Dose 8 MG; Start 05/02/16 at 21:00 Sodium Chloride (1/2 NS) 1,000 ml @ 50 mls/hr Q20H IV Last administered on 05/02 20:33; Admin Dose 50 MLS/HR; Start 05/02/16 at 08:00 Terbinafine HCl (Lamisil) 250 mg BID PO Last administered on 05/04/16 08:43; Admin Dose 250 MG; Start 05/02/16 at 09:00; Stop 05/09/16 at 08:59 Miscellaneous Information 1 ea NOTE XX ; Start 05/02/16 at 15:30 Glucose (Glutose) 15 gm Q15M PRN PO DECREASED GLUCOSE; Start 05/02/16 at 15:30 Glucose (Glutose) 22.5 gm Q15M PRN PO DECREASED GLUCOSE; Start 05/02/16 at 15:30 Dextrose (D50w Syringe) 25 ml Q15M PRN IV DECREASED GLUCOSE; Start 05/02/16 at 15:30 Dextrose (D50w Syringe) 50 ml Q15M PRN IV DECREASED GLUCOSE; Start 05/02/16 at 15:30 Glucagon (Glucagen) 1 mg Q15M PRN IM DECREASED GLUCOSE; Start 05/02/16 at 15:30 Glucose (Glutose) 15 gm Q15M PRN BUCCAL DECREASED GLUCOSE; Start 05/02/16 at 15: 30 Lisinopril (Zestril) 20 mg HS PO Last administered on 05/03/16 20:49; Admin Dose 20 MG; Start 05/03/16 at 21:00 Heparin Sodium (Porcine) (Heparin (5000 Units/0.5 ml)) 5,000 unit Q12 SC Last administered on 05/04/16 08:44; Admin Dose 5,000 UNIT; Start 05/04/16 at 09:00 OLVIN DONOHUE MD May 04, 2016 08:50
[2016-05-04] MEDS: morphine 2 MG INJ IV PRN (11:07)
--- NOTE | 2016-05-04 13:01 | PN ---
Date/Time of Note Date/Time of Note DATE: 05/04/16 TIME: 12:59 Assessment/Plan Lines/Catheters IV Catheter Type (from [facility]): Peripheral IV Albarran in Place (from [facility]): No Assessment/Plan Chief Complaint/Hosp Course Doing well s/p L pop-PT bypass and 2nd toe amputation, 2+ graft pulse, foot well perfused - apply VAC to toe amp site - continue PT - Dr. Montalvo to see regarding revision of toe amputation Problems: Subjective 24 Hr Interval Summary c/o incisional pain. Ambulated with PT. Exam/Review of Systems Vital Signs Vitals Vital Signs Date Time Temp Pulse Resp B/P Pulse Ox O2 Delivery O2 Flow Rate FiO2 05/04/16 11:56 97.5 86 17 143/72 97 05/03/16 11:00 Room Air 05/01/16 17:00 2.0 Intake and Output 05/03/16 05/03/16 05/04/16 15:00 23:00 07:00 Intake Total 440 ml 720 ml Output Total 350 ml 1025 ml 550 ml Balance 90 ml -305 ml -550 ml Exam Free Text/Dictation L leg dressings intact with some minor staining, no hematoma 2+ graft pulse in mid calf L 2nd toe amputation site packing removed and the tissue is bleeding and beginning to granulate in the base Results Result Diagram: 05/04/16 0600 05/04/16 0600 ALEJANDRO LINARES MD May 04, 2016 13:01
--- NOTE | 2016-05-04 15:42 | PN ---
Date/Time of Note Date/Time of Note DATE: 05/04/16 TIME: 15:36 Assessment/Plan VTE Prophylaxis VTE Prophylaxis Intervention: LMWH Lines/Catheters IV Catheter Type (from Nrsg): Peripheral IV Urinary Cath still in place: No Subjective 24 Hr Interval Summary Free Text/Dictation post op vasc biopass left leg, partial amp second toe wound vacc in place, small vesicles over tape on the thigh,not infected blood sugars good, vs ok alert, fluent lungs clear, heart rate is ok abdomen soft left leg is warm, mild bleeding under distal scar foot wrapped wound vacc is on Additional Comments reports occ sharp pain or throb in the heel Exam/Review of Systems Vital Signs Vitals Vital Signs Date Time Temp Pulse Resp B/P Pulse Ox O2 Delivery O2 Flow Rate FiO2 05/04/16 15:25 98.4 78 17 133/69 97 05/03/16 11:00 Room Air 05/01/16 17:00 2.0 Intake and Output 05/03/16 05/03/16 05/04/16 15:00 23:00 07:00 Intake Total 440 ml 720 ml Output Total 350 ml 1025 ml 550 ml Balance 90 ml -305 ml -550 ml Results Result Diagram: 05/04/16 0600 05/04/16 0600 Results 24 hrs Laboratory Tests Test 05/03/16 17:46 05/03/16 20:54 05/04/16 06:00 05/04/16 07:45 Bedside Glucose 153 157 112 Alanine Aminotransferase (ALT/SGPT) 19 Albumin 2.9 L Albumin/Globulin Ratio 0.96 Alkaline Phosphatase 96 Anion Gap 13 Aspartate Amino Transf (AST/SGOT) 13 L Basophils # 0.0 Basophils % 0.5 Blood Morphology Comment Blood Urea Nitrogen 11 Calcium Level 8.9 Carbon Dioxide Level 30 Chloride Level 105 Creatinine 0.61 Direct Bilirubin 0.00 Eosinophils # 0.6 H Eosinophils % 12.1 H Globulin 3.00 Glucose Level 97 Hematocrit 25.6 L Hemoglobin 8.5 L Indirect Bilirubin 0.2 Lymphocytes # 1.1 Lymphocytes % 23.3 Mean Corpuscular Hemoglobin 27.1 L Mean Corpuscular Hemoglobin Concent 33.3 Mean Corpuscular Volume 81.4 L Mean Platelet Volume 8.3 Monocytes # 0.5 Monocytes % 10.0 Neutrophils # 2.5 Neutrophils % 54.1 Nucleated Red Blood Cells # 0.0 Nucleated Red Blood Cells % 0.0 Platelet Count 228 Potassium Level 4.2 Red Blood Count 3.15 L Red Cell Distribution Width 17.2 H Sodium Level 144 Total Bilirubin 0.2 Total Protein 5.9 L White Blood Count 4.6 L Test 05/04/16 11:43 Bedside Glucose 120 Medications Medications Current Medications Acetaminophen (Tylenol Tab) 650 mg Q6H PRN PO PAIN AND OR ELEVATED TEMP; Start 05/01/16 at 12:00 Acetaminophen/ Hydrocodone Bitart ([place] (5/325)) 1 tab Q6H PRN PO PAIN LEVEL 6 -10 Last administered on 05/04/16 15:15; Admin Dose 1 TAB; Start 05/01/16 at 12: 00 Morphine Sulfate (morphine) 2 mg Q2H PRN IV BREAKTHROUGH PAIN Last administered on 05/04/16 11:07; Admin Dose 2 MG; Start 05/01/16 at 12:00 Ondansetron HCl (Zofran Inj) 4 mg Q6H PRN IV NAUSEA AND/OR VOMITING; Start 05/01 at 12:00 Insulin Detemir (Levemir) 15 unit QHS SC Last administered on 05/03/16 21:38; Admin Dose 15 UNIT; Start 05/01/16 at 21:00 Aspirin (Ecotrin) 325 mg DAILY PO Last administered on 05/04/16 08:41; Admin Dose 325 MG; Start 05/01/16 at 12:00 Clopidogrel Bisulfate (plaVIX) 75 mg DAILY PO Last administered on 05/04/16 08: 41; Admin Dose 75 MG; Start 05/01/16 at 12:00 Atorvastatin Calcium (Lipitor) 20 mg DAILY@21 PO Last administered on 05/03/16 20:50; Admin Dose 20 MG; Start 05/02/16 at 21:00 Doxazosin Mesylate 8 mg 8 mg 21 PO Last administered on 05/03/16 20:50; Admin Dose 8 MG; Start 05/02/16 at 21:00 Sodium Chloride (1/2 NS) 1,000 ml @ 50 mls/hr Q20H IV Last administered on 05/02 20:33; Admin Dose 50 MLS/HR; Start 05/02/16 at 08:00 Terbinafine HCl (Lamisil) 250 mg BID PO Last administered on 05/04/16 08:43; Admin Dose 250 MG; Start 05/02/16 at 09:00; Stop 05/09/16 at 08:59 Miscellaneous Information 1 ea NOTE XX ; Start 05/02/16 at 15:30 Glucose (Glutose) 15 gm Q15M PRN PO DECREASED GLUCOSE; Start 05/02/16 at 15:30 Glucose (Glutose) 22.5 gm Q15M PRN PO DECREASED GLUCOSE; Start 05/02/16 at 15:30 Dextrose (D50w Syringe) 25 ml Q15M PRN IV DECREASED GLUCOSE; Start 05/02/16 at 15:30 Dextrose (D50w Syringe) 50 ml Q15M PRN IV DECREASED GLUCOSE; Start 05/02/16 at 15:30 Glucagon (Glucagen) 1 mg Q15M PRN IM DECREASED GLUCOSE; Start 05/02/16 at 15:30 Glucose (Glutose) 15 gm Q15M PRN BUCCAL DECREASED GLUCOSE; Start 05/02/16 at 15: 30 Lisinopril (Zestril) 20 mg HS PO Last administered on 05/03/16 20:49; Admin Dose 20 MG; Start 05/03/16 at 21:00 Heparin Sodium (Porcine) (Heparin (5000 Units/0.5 ml)) 5,000 unit Q12 SC Last administered on 05/04/16 08:44; Admin Dose 5,000 UNIT; Start 05/04/16 at 09:00 GIANNI GOSS MD May 04, 2016 15:41
[2016-05-04] MEDS: SOD CHLORIDE 0.45% 1,000 ML IV SCH ×2 (18:26)
[2016-05-04] MEDS: ATORVASTATIN 20 MG TAB PO SCH (21:48)
[2016-05-04] MEDS: DOXAZOSIN 4 MG TAB PO SCH (21:49)
[2016-05-04] MEDS: LISINOPRIL 20 MG TAB PO SCH (21:49)
[2016-05-04] MEDS: INSULIN DETEMIR [LEVEMIR] 3ML CART SC SCH (21:56)
[2016-05-05] VITALS (11 sets, daily range): BP systolic 134–156; BP diastolic 69–78; PULSE 68–96; RESP 17–20
[2016-05-05] MEDS: HYDROCODONE/APAP (5/325) TAB PO PRN ×3 (07:04→21:24)
[2016-05-05] MEDS: metFORMIN 500 MG TAB PO SCH ×3 (07:05→17:35)
[2016-05-05] MEDS: INSULIN ASPART [NOVOLOG] 3 ML PEN SC SCH ×3 (07:17→17:37)
[2016-05-05] MEDS: CLOPIDOGREL 75 MG TAB PO SCH (08:35)
[2016-05-05] MEDS: ASPIRIN (EC) 325 MG TAB PO SCH (08:35)
[2016-05-05] MEDS: TERBINAFINE 250 MG TAB PO SCH ×2 (08:35→21:13)
[2016-05-05] MEDS: HEPARIN 5,000 UNIT/0.5 ML SYG SC SCH ×2 (08:48→21:18)
--- NOTE | 2016-05-05 10:26 | CONS ---
Date/Time of Note Date/Time of Note DATE: 05/05/16 TIME: 10:21 Assessment/Plan Assessment/Plan Problems: (1) Acquired absence of other left toe(s) (2) Peripheral vascular disease due to secondary diabetes mellitus Status: Chronic (3) Type 2 diabetes mellitus with diabetic polyneuropathy Status: Chronic Qualifiers: Qualified Code: E11.42 - Type 2 diabetes mellitus with diabetic polyneuropathy, with long-term current use of insulin (4) Essential hypertension Status: Chronic Additional Assessment/Plan Patient will be scheduled for surgery for debridement and possible closure of open wounds of the left second toe. For now, continue wound VAC and change every 48 hours. Once patient is scheduled, preoperative orders will be placed in. Thank you very much again for involving me in the care of this patient. Patient will be followed in-house. Consultation Date/Type/Reason Admit Date/Time May 01, 2016 at 05:30 Date of Consultation: May 05, 2016 Type of Consultation: Foot and ankle surgery Reason for Consultation Gangrene right second toe with current open wound Hx of Present Illness Thank you very much for involving me in the care of this patient. As you very well know with peripheral vascular disease and has developed gangrene of his left second toe. Patient has undergone lower extremity arterial bypass surgery by Dr. Cliff Mederos during this admission. I was consulted to evaluate his left foot. Dr. Mederos has also amputated the second toe however there is an open wound that remains which is being covered by wound VAC. Patient's past medical history is significant for cecal cancer status post resection, diabetes mellitus type 2 with peripheral neuropathy and peripheral vascular disease, hyperlipidemia, obesity, BPH, diabetic retinopathy with hemorrhage OD, lumbar disc disease, cervical spine disc disease, status post recent left lower extremity arterial bypass with gangrene of the second toe. Constitutional: no complaints (No fever chills or sweats) Eyes: no complaints (No new complaints please note he has a history of diabetic eye disease especially in the right eye) ENT: no complaints (No complaints) Respiratory: no complaints Cardiovascular: no complaints Gastrointestinal: no complaints Genitourinary: no complaints (Please note he does have BPH symptoms with AUA score of roughly 8 while on medications he is not clear what his medications are ) Musculoskeletal: no complaints, other (He reports his left leg postoperative feels heavy but is able to move all extremities) Skin: no complaints (Denies any skin issues although he does have onychomycosis ) Neurologic: no complaints Endocrine: no complaints Lymphatic: no complaints Psychological: nl mood/affect, no complaints Immunologic: no complaints Past Medical History As per history of present illness. Medical History: diabetes, high cholesterol, hypertension Past Surgical History As per history of present illness. Past Surgical Hx: angioplasty (Noncardiac) Social History As per history of present illness. Alcohol Use: none Smoking Status: Never smoker Drug Use: none Exam/Review of Systems Vital Signs Vitals Vital Signs Date Time Temp Pulse Resp B/P Pulse Ox O2 Delivery O2 Flow Rate FiO2 05/05/16 08:23 69 05/05/16 07:00 98.1 17 134/72 98 05/03/16 11:00 Room Air 05/01/16 17:00 2.0 Intake and Output 05/04/16 05/04/16 05/05/16 15:00 23:00 07:00 Intake Total 1450 ml 210 ml Output Total 700 ml 800 ml Balance 750 ml -590 ml Exam Patient is in no acute distress laying supine in bed. Patient has a wound VAC attached to the left foot at the site of the amputation of the second toe. Patient has dressings for the lower extremity bypass. Second toe is amputated and there is an open wound in the area. There is no surrounding erythema. Imaging and labs reviewed. Protective sensation is decreased to sharp dull vibratory and temperature stimuli. Right foot shows no open wounds. No sign of infection the right foot. Results Result Diagram: 05/04/16 0600 05/04/16 0600 Results 24 hrs Laboratory Tests Test 05/04/16 11:43 05/04/16 17:20 05/04/16 21:55 05/05/16 07:00 Bedside Glucose 120 124 149 88 Medications Medications Current Medications Acetaminophen (Tylenol Tab) 650 mg Q6H PRN PO PAIN AND OR ELEVATED TEMP; Start 05/01/16 at 12:00 Acetaminophen/ Hydrocodone Bitart ([place] (5/325)) 1 tab Q6H PRN PO PAIN LEVEL 6 -10 Last administered on 05/05/16 07:04; Admin Dose 1 TAB; Start 05/01/16 at 12: 00 Morphine Sulfate (morphine) 2 mg Q2H PRN IV BREAKTHROUGH PAIN Last administered on 05/04/16 11:07; Admin Dose 2 MG; Start 05/01/16 at 12:00 Ondansetron HCl (Zofran Inj) 4 mg Q6H PRN IV NAUSEA AND/OR VOMITING; Start 05/01 at 12:00 Insulin Detemir (Levemir) 15 unit QHS SC Last administered on 05/04/16 21:56; Admin Dose 15 UNIT; Start 05/01/16 at 21:00 Aspirin (Ecotrin) 325 mg DAILY PO Last administered on 05/05/16 08:35; Admin Dose 325 MG; Start 05/01/16 at 12:00 Clopidogrel Bisulfate (plaVIX) 75 mg DAILY PO Last administered on 05/05/16 08: 35; Admin Dose 75 MG; Start 05/01/16 at 12:00 Atorvastatin Calcium (Lipitor) 20 mg DAILY@21 PO Last administered on 05/04/16 21:48; Admin Dose 20 MG; Start 05/02/16 at 21:00 Doxazosin Mesylate 8 mg 8 mg 21 PO Last administered on 05/04/16 21:49; Admin Dose 8 MG; Start 05/02/16 at 21:00 Sodium Chloride (1/2 NS) 1,000 ml @ 50 mls/hr Q20H IV Last administered on 05/04 18:26; Admin Dose 50 MLS/HR; Start 05/02/16 at 08:00 Terbinafine HCl (Lamisil) 250 mg BID PO Last administered on 05/05/16 08:35; Admin Dose 250 MG; Start 05/02/16 at 09:00; Stop 05/09/16 at 08:59 Miscellaneous Information 1 ea NOTE XX ; Start 05/02/16 at 15:30 Glucose (Glutose) 15 gm Q15M PRN PO DECREASED GLUCOSE; Start 05/02/16 at 15:30 Glucose (Glutose) 22.5 gm Q15M PRN PO DECREASED GLUCOSE; Start 05/02/16 at 15:30 Dextrose (D50w Syringe) 25 ml Q15M PRN IV DECREASED GLUCOSE; Start 05/02/16 at 15:30 Dextrose (D50w Syringe) 50 ml Q15M PRN IV DECREASED GLUCOSE; Start 05/02/16 at 15:30 Glucagon (Glucagen) 1 mg Q15M PRN IM DECREASED GLUCOSE; Start 05/02/16 at 15:30 Glucose (Glutose) 15 gm Q15M PRN BUCCAL DECREASED GLUCOSE; Start 05/02/16 at 15: 30 Lisinopril (Zestril) 20 mg HS PO Last administered on 05/04/16 21:49; Admin Dose 20 MG; Start 05/03/16 at 21:00 Heparin Sodium (Porcine) (Heparin (5000 Units/0.5 ml)) 5,000 unit Q12 SC Last administered on 05/05/16 08:48; Admin Dose 5,000 UNIT; Start 05/04/16 at 09:00 CLARICE JUNIOR DPM May 05, 2016 10:26
[2016-05-05] MEDS: SOD CHLORIDE 0.45% 1,000 ML IV SCH (15:07)
[2016-05-05] MEDS: LISINOPRIL 20 MG TAB PO SCH (21:14)
[2016-05-05] MEDS: ATORVASTATIN 20 MG TAB PO SCH (21:14)
[2016-05-05] MEDS: DOXAZOSIN 4 MG TAB PO SCH (21:15)
[2016-05-05] MEDS: INSULIN DETEMIR [LEVEMIR] 3ML CART SC SCH (21:20)
[2016-05-06] VITALS (13 sets, daily range): BP systolic 120–155; BP diastolic 67–85; PULSE 71–87; RESP 16–20
[2016-05-06] MEDS: metFORMIN 500 MG TAB PO SCH ×3 (08:41→18:00)
[2016-05-06] MEDS: TERBINAFINE 250 MG TAB PO SCH ×2 (08:41→20:50)
[2016-05-06] MEDS: ASPIRIN (EC) 325 MG TAB PO SCH (08:41)
[2016-05-06] MEDS: CLOPIDOGREL 75 MG TAB PO SCH (08:42)
[2016-05-06] MEDS: INSULIN ASPART [NOVOLOG] 3 ML PEN SC SCH ×3 (08:44→18:03)
[2016-05-06] MEDS: HEPARIN 5,000 UNIT/0.5 ML SYG SC SCH ×2 (08:50→20:55)
[2016-05-06] MEDS: SOD CHLORIDE 0.45% 1,000 ML IV SCH ×2 (12:00→14:56)
--- NOTE | 2016-05-06 14:14 | PN ---
Date/Time of Note Date/Time of Note DATE: 05/06/16 TIME: 14:11 Assessment/Plan Lines/Catheters IV Catheter Type (from [facility]): Peripheral IV Albarran in Place (from [facility]): No Assessment/Plan Chief Complaint/Hosp Course Doing well s/p L pop-PT bypass and 2nd toe amputation, 2+ graft pulse, foot well perfused - conintue VAC to toe amp site - continue PT - Dr. Montalvo for toe amputation revision tomorrow - OK for discharge home from my standpoint when [facility] arranged Problems: Subjective 24 Hr Interval Summary No c/o. Ambulating with PT. VAC in place. Dr. Montalvo has him scheduled for revision of the 3rd toe amputation for tomorrow. Exam/Review of Systems Vital Signs Vitals Vital Signs Date Time Temp Pulse Resp B/P Pulse Ox O2 Delivery O2 Flow Rate FiO2 05/06/16 12:16 87 05/06/16 11:50 98.3 18 148/77 99 05/06/16 04:00 Room Air Intake and Output 05/05/16 05/05/16 05/06/16 14:59 22:59 06:59 Intake Total 1250 ml 200 ml Output Total 0 ml 600 ml 620 ml Balance 0 ml 650 ml -420 ml Exam Free Text/Dictation L leg incisions all clean and dry, no drainage L foot warm / hyperemic, 2+ graft pulse, VAC in place on toe amputation site with good seal Results Result Diagram: 05/04/16 0600 05/04/16 0600 ALEJANDRO LINARES MD May 06, 2016 14:14
[2016-05-06] MEDS: HYDROCODONE/APAP (5/325) TAB PO PRN (18:04)
--- NOTE | 2016-05-06 19:24 | PN ---
Date/Time of Note Date/Time of Note DATE: 05/06/16 TIME: 19:20 Assessment/Plan VTE Prophylaxis VTE Prophylaxis Intervention: other (Plavix) Lines/Catheters IV C[facility]ter Type (from [facility]): Peripheral IV Urinary Cath still in place: No Assessment/Plan Chief Complaint/Hosp Course 65-year-old male with a prior history of poorly controlled diabetes with multiple complications. He has known peripheral vascular disease especially affecting the left lower extremity. He had undergone a percutaneous intervention of the left lower leg arterially however developed gangrene requiring further intervention and the percutaneous did not have a durable outcome. He was brought in and operated on is now in the intensive care unit postoperatively. Problems: (1) Diabetic retinopathy associated with type 2 diabetes mellitus, with macular edema, with retinopathy Status: Chronic Comment: His diabetic control is very good at the present time on this regimen. There has been no flaring or abnormalities of his retinal disease fortunately. Please note he is on an antiplatelet agent Qualifiers: Diabetic retinopathy severity: with moderate nonproliferative retinopathy Laterality: bilateral Qualified Code: E11.3313 - Moderate nonproliferative diabetic retinopathy of both eyes with macular edema associated with type 2 diabetes mellitus (2) Hyperlipidemia associated with type 2 diabetes mellitus Status: Chronic Comment: Noted he is on statin therapy (3) Essential hypertension Status: Chronic Comment: This is well controlled (4) BPH (benign prostatic hyperplasia) Status: Chronic Comment: Noted. He is on full dose alpha varun therapy and stable Qualifiers: Prostatic enlargement morphology: non-nodular Lower urinary tract symptom presence: symptoms present Qualified Code: N40.1 - Benign non-nodular prostatic hyperplasia with lower urinary tract symptoms (5) Peripheral vascular disease due to secondary diabetes mellitus Status: Chronic Comment: Is status post vascular bypass and doing well. He will need revision of the wound on his left foot which is scheduled for the morning. After that he should be able to be discharged. Please note he will have full prophylactic or preventative secondary measures (6) Anemia due to blood loss, chronic Status: Chronic Comment: He is still rather anemic and I am going to give dosages of iron IV to help bring him back up (7) Acquired absence of other left toe(s) Comment: Please see consult from Dr. Montalvo (8) Aftercare following surgery Status: Acute Comment: Stable and doing well Subjective 24 Hr Interval Summary Free Text/Dictation He reports his pain is under adequate control. Constitutional: no complaints (Denies fevers chills or sweats) Respiratory: no complaints (Denies shortness of breath) Cardiovascular: no complaints (Denies chest pain palpitations orthopnea or PND) Gastrointestinal: no complaints (Denies nausea or vomiting) Exam/Review of Systems Vital Signs Vitals Vital Signs Date Time Temp Pulse Resp B/P Pulse Ox O2 Delivery O2 Flow Rate FiO2 05/06/16 19:06 98.7 91 16 146/85 97 05/06/16 04:00 Room Air Intake and Output 05/05/16 05/05/16 05/06/16 15:00 23:00 07:00 Intake Total 1250 ml 200 ml Output Total 0 ml 600 ml 620 ml Balance 0 ml 650 ml -420 ml Exam Constitutional: alert, oriented Neck: non-tender, supple Respiratory: clear to auscultation, normal air movement Cardiovascular: nl pulses, regular rate and rhythm Extremities: other (He has bilateral pulses.) Results Result Diagram: 05/04/16 0600 05/04/16 0600 Results 24 hrs Laboratory Tests Test 05/05/16 21:12 05/06/16 08:06 05/06/16 11:43 05/06/16 17:14 Bedside Glucose 170 116 114 150 Medications Medications Current Medications Acetaminophen (Tylenol Tab) 650 mg Q6H PRN PO PAIN AND OR ELEVATED TEMP; Start 05/01/16 at 12:00 Acetaminophen/ Hydrocodone Bitart ([place] (5/325)) 1 tab Q6H PRN PO PAIN LEVEL 6 -10 Last administered on 05/06/16 18:04; Admin Dose 1 TAB; Start 05/01/16 at 12: 00 Morphine Sulfate (morphine) 2 mg Q2H PRN IV BREAKTHROUGH PAIN Last administered on 05/04/16 11:07; Admin Dose 2 MG; Start 05/01/16 at 12:00 Ondansetron HCl (Zofran Inj) 4 mg Q6H PRN IV NAUSEA AND/OR VOMITING; Start 05/01 at 12:00 Insulin Detemir (Levemir) 15 unit QHS SC Last administered on 05/05/16 21:20; Admin Dose 15 UNIT; Start 05/01/16 at 21:00 Aspirin (Ecotrin) 325 mg DAILY PO Last administered on 05/06/16 08:41; Admin Dose 325 MG; Start 05/01/16 at 12:00 Clopidogrel Bisulfate (plaVIX) 75 mg DAILY PO Last administered on 05/06/16 08: 42; Admin Dose 75 MG; Start 05/01/16 at 12:00 Atorvastatin Calcium (Lipitor) 20 mg DAILY@21 PO Last administered on 05/05/16 21:14; Admin Dose 20 MG; Start 05/02/16 at 21:00 Doxazosin Mesylate 8 mg 8 mg 21 PO Last administered on 05/05/16 21:15; Admin Dose 8 MG; Start 05/02/16 at 21:00 Sodium Chloride (1/2 NS) 1,000 ml @ 50 mls/hr Q20H IV Last administered on 05/06 14:56; Admin Dose 50 MLS/HR; Start 05/02/16 at 08:00 Terbinafine HCl (Lamisil) 250 mg BID PO Last administered on 05/06/16 08:41; Admin Dose 250 MG; Start 05/02/16 at 09:00; Stop 05/09/16 at 08:59 Miscellaneous Information 1 ea NOTE XX ; Start 05/02/16 at 15:30 Glucose (Glutose) 15 gm Q15M PRN PO DECREASED GLUCOSE; Start 05/02/16 at 15:30 Glucose (Glutose) 22.5 gm Q15M PRN PO DECREASED GLUCOSE; Start 05/02/16 at 15:30 Dextrose (D50w Syringe) 25 ml Q15M PRN IV DECREASED GLUCOSE; Start 05/02/16 at 15:30 Dextrose (D50w Syringe) 50 ml Q15M PRN IV DECREASED GLUCOSE; Start 05/02/16 at 15:30 Glucagon (Glucagen) 1 mg Q15M PRN IM DECREASED GLUCOSE; Start 05/02/16 at 15:30 Glucose (Glutose) 15 gm Q15M PRN BUCCAL DECREASED GLUCOSE; Start 05/02/16 at 15: 30 Lisinopril (Zestril) 20 mg HS PO Last administered on 05/05/16 21:14; Admin Dose 20 MG; Start 05/03/16 at 21:00 Heparin Sodium (Porcine) (Heparin (5000 Units/0.5 ml)) 5,000 unit Q12 SC Last administered on 05/06/16 08:50; Admin Dose 5,000 UNIT; Start 05/04/16 at 09:00 NARA LYNN MD May 06, 2016 19:24
--- NOTE | 2016-05-06 19:26 | PN ---
Date/Time of Note Date/Time of Note DATE: 05/06/16 TIME: 19:25 Assessment/Plan VTE Prophylaxis VTE Prophylaxis Intervention: other Lines/Catheters IV Catheter Type (from [facility]): Peripheral IV Urinary Cath still in place: No Assessment/Plan Chief Complaint/Hosp Course 65-year-old male with a prior history of poorly controlled diabetes with multiple complications. He has known peripheral vascular disease especially affecting the left lower extremity. He had undergone a percutaneous intervention of the left lower leg arterially however developed gangrene requiring further intervention and the percutaneous did not have a durable outcome. He was brought in and operated on is now in the intensive care unit postoperatively. Problems: (1) Essential hypertension Status: Chronic Comment: Adequate control. 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 Awaiting decisions about 1 to do further debridement on the left foot Assessment/Plan Late entry for May 05, 2016 Subjective 24 Hr Interval Summary Free Text/Dictation Late entry for May 05, 2016 Constitutional: no complaints Respiratory: no complaints Cardiovascular: no complaints Gastrointestinal: no complaints Exam/Review of Systems Vital Signs Vitals Vital Signs Date Time Temp Pulse Resp B/P Pulse Ox O2 Delivery O2 Flow Rate FiO2 05/06/16 19:06 98.7 91 16 146/85 97 05/06/16 04:00 Room Air Intake and Output 05/05/16 05/05/16 05/06/16 15:00 23:00 07:00 Intake Total 1250 ml 200 ml Output Total 0 ml 600 ml 620 ml Balance 0 ml 650 ml -420 ml Exam Constitutional: alert, oriented Respiratory: clear to auscultation, normal air movement Cardiovascular: nl pulses, regular rate and rhythm Results Result Diagram: 05/04/16 0600 05/04/16 0600 Results 24 hrs Laboratory Tests Test 05/05/16 21:12 05/06/16 08:06 05/06/16 11:43 05/06/16 17:14 Bedside Glucose 170 116 114 150 Medications Medications Current Medications Acetaminophen (Tylenol Tab) 650 mg Q6H PRN PO PAIN AND OR ELEVATED TEMP; Start 05/01/16 at 12:00 Acetaminophen/ Hydrocodone Bitart ([place] (5/325)) 1 tab Q6H PRN PO PAIN LEVEL 6 -10 Last administered on 05/06/16 18:04; Admin Dose 1 TAB; Start 05/01/16 at 12: 00 Morphine Sulfate (morphine) 2 mg Q2H PRN IV BREAKTHROUGH PAIN Last administered on 05/04/16 11:07; Admin Dose 2 MG; Start 05/01/16 at 12:00 Ondansetron HCl (Zofran Inj) 4 mg Q6H PRN IV NAUSEA AND/OR VOMITING; Start 05/01 at 12:00 Insulin Detemir (Levemir) 15 unit QHS SC Last administered on 05/05/16 21:20; Admin Dose 15 UNIT; Start 05/01/16 at 21:00 Aspirin (Ecotrin) 325 mg DAILY PO Last administered on 05/06/16 08:41; Admin Dose 325 MG; Start 05/01/16 at 12:00 Clopidogrel Bisulfate (plaVIX) 75 mg DAILY PO Last administered on 05/06/16 08: 42; Admin Dose 75 MG; Start 05/01/16 at 12:00 Atorvastatin Calcium (Lipitor) 20 mg DAILY@21 PO Last administered on 05/05/16 21:14; Admin Dose 20 MG; Start 05/02/16 at 21:00 Doxazosin Mesylate 8 mg 8 mg 21 PO Last administered on 05/05/16 21:15; Admin Dose 8 MG; Start 05/02/16 at 21:00 Sodium Chloride (1/2 NS) 1,000 ml @ 50 mls/hr Q20H IV Last administered on 05/06 14:56; Admin Dose 50 MLS/HR; Start 05/02/16 at 08:00 Terbinafine HCl (Lamisil) 250 mg BID PO Last administered on 05/06/16 08:41; Admin Dose 250 MG; Start 05/02/16 at 09:00; Stop 05/09/16 at 08:59 Miscellaneous Information 1 ea NOTE XX ; Start 05/02/16 at 15:30 Glucose (Glutose) 15 gm Q15M PRN PO DECREASED GLUCOSE; Start 05/02/16 at 15:30 Glucose (Glutose) 22.5 gm Q15M PRN PO DECREASED GLUCOSE; Start 05/02/16 at 15:30 Dextrose (D50w Syringe) 25 ml Q15M PRN IV DECREASED GLUCOSE; Start 05/02/16 at 15:30 Dextrose (D50w Syringe) 50 ml Q15M PRN IV DECREASED GLUCOSE; Start 05/02/16 at 15:30 Glucagon (Glucagen) 1 mg Q15M PRN IM DECREASED GLUCOSE; Start 05/02/16 at 15:30 Glucose (Glutose) 15 gm Q15M PRN BUCCAL DECREASED GLUCOSE; Start 05/02/16 at 15: 30 Lisinopril (Zestril) 20 mg HS PO Last administered on 05/05/16 21:14; Admin Dose 20 MG; Start 05/03/16 at 21:00 Heparin Sodium (Porcine) (Heparin (5000 Units/0.5 ml)) 5,000 unit Q12 SC Last administered on 05/06/16 08:50; Admin Dose 5,000 UNIT; Start 05/04/16 at 09:00 NARA LYNN MD May 06, 2016 19:26
[2016-05-06] MEDS: DOXAZOSIN 4 MG TAB PO SCH (20:51)
[2016-05-06] MEDS ORDERED: SOD FERRIC GLUC COMPLX 125 MG in SOD CHLORIDE 0.9% 100 ML IVPB SCH (21:00)
[2016-05-06] MEDS ORDERED: ATORVASTATIN 40 MG TAB PO SCH (21:00)
[2016-05-06] MEDS ORDERED: LISINOPRIL 20 MG TAB PO SCH (21:00)
[2016-05-06] MEDS: INSULIN DETEMIR [LEVEMIR] 3ML CART SC SCH (21:05)
[2016-05-07] VITALS (9 sets, daily range): BP systolic 128–167; BP diastolic 72–80; PULSE 68–81; RESP 18–19
[2016-05-07] MEDS: metFORMIN 500 MG TAB PO SCH ×2 (07:55→11:41)
[2016-05-07] MEDS: INSULIN ASPART [NOVOLOG] 3 ML PEN SC SCH ×2 (07:55→11:33)
[2016-05-07] MEDS: ASPIRIN (EC) 325 MG TAB PO SCH (08:06)
[2016-05-07] MEDS: CLOPIDOGREL 75 MG TAB PO SCH (08:07)
[2016-05-07] MEDS: HYDROCODONE/APAP (5/325) TAB PO PRN (08:07)
[2016-05-07] MEDS: TERBINAFINE 250 MG TAB PO SCH (08:07)
[2016-05-07] MEDS: HEPARIN 5,000 UNIT/0.5 ML SYG SC SCH (08:08)
[2016-05-07] MEDS: SOD CHLORIDE 0.45% 1,000 ML IV SCH (08:14)
[2016-05-07] MEDS ORDERED: LIDOCAINE 2% (SDV) 5 ML INJ ONE (08:40)
[2016-05-07] MEDS ORDERED: PROPOFOL 20 ML ONE (08:40)
[2016-05-07] MEDS ORDERED: GLYCOPYRROLATE 0.4 MG INJ ONE (08:40)
[2016-05-07] MEDS ORDERED: NEOSTIGMINE 3 MG/3 ML SYRINGE ONE (08:40)
[2016-05-07] MEDS ORDERED: MIDAZOLAM 1 MG/ML 2 ML INJ ONE (08:40)
[2016-05-07] MEDS ORDERED: ROCURONIUM 50 MG INJ ONE (08:40)
[2016-05-07] MEDS ORDERED: FENTAnyl 50 MCG/ML VIAL ONE (08:40)
--- NOTE | 2016-05-07 16:08 | PDOCDIS ---
Discharge Instructions DIAGNOSIS Discharge Diagnosis: Peripheral vascular disease; diabetes; left foot gangrene CONDITION Patient Condition: Good HOME CARE INSTRUCTIONS: Special Diet: 1800 magdalena ADA ACTIVITY: Activity Restrictions: Slowly Increase Activity Do not operate Machinery Do not operate Power Tool FOLLOW UP/APPOINTMENTS Appointments [facility] in one week with Dr. Mederos, and NARA Belcher MD May 07, 2016 16:08
[2016-05-07] MEDS ORDERED: CLOP75TA28 PO (16:11)
[2016-05-07] MEDS ORDERED: LISI20TA11 PO (16:11)
[2016-05-07] MEDS ORDERED: DOXA4TAB2 PO (16:11)
[2016-05-07] MEDS ORDERED: ATOR40TA68 PO (16:11)
--- NOTE | 2016-05-08 00:50 | PN ---
Date/Time of Note Date/Time of Note DATE: 05/07/16 TIME: 10:15 Assessment/Plan Lines/Catheters IV Catheter Type (from Nrs): Peripheral IV [place]bar[place] in Place (from Nrs): No Assessment/Plan Problems: (1) Open wound of left foot (2) Toe amputation status (3) Peripheral vascular disease Assessment/Plan After taking off the wound VAC today, I noticed sig improvement. In order to close the wound, I would need to place tension on the skin edge and this can create necrosis of the skin along the wound and my compromise the wound healing. The surgery was cancelled today. Wound VAC was placed on hold and the wound will be changed using Acticote and daily dressing change. Exam/Review of Systems Vital Signs Vitals Vital Signs Date Time Temp Pulse Resp B/P Pulse Ox O2 Delivery O2 Flow Rate FiO2 05/07/16 16:14 74 05/07/16 11:07 98.4 19 149/75 98 05/06/16 04:00 Room Air Results Result Diagram: 05/04/16 0600 05/04/16 0600 CLARICE JUNIOR DPM May 08, 2016 00:50
== END 2016-05-07 17:45 | disposition home or self-care (01) | DRG 253 ==
LOC: REC 05:30 → ICU 13:29 → TEL 05-03 11:14
PROVIDERS: ADMIT Surgery Vascular Surgery; ATTEND Surgery Vascular Surgery
PROC: 0Y6S0Z0 Detachment at Left 2nd Toe, Complete, Open Approach (ICD-10-PCS; 2016-05-01)
PROC: 06BQ0ZZ Excision of Left Saphenous Vein, Open Approach (ICD-10-PCS; 2016-05-01)
PROC: 041N09Q Bypass Left Popliteal Artery to Lower Extremity Artery with Autologous Venous Tissue, Open Approach (ICD-10-PCS; principal; 2016-05-01 08:00)
DX: E11.52 Type 2 diabetes mellitus with diabetic peripheral angiopathy with gangrene (principal); E11.42 Type 2 diabetes mellitus with diabetic polyneuropathy; Z79.4 Long term (current) use of insulin; I10 Essential (primary) hypertension; E78.5 Hyperlipidemia, unspecified; E66.3 Overweight; Z68.27 Body mass index [BMI] 27.0-27.9, adult; N40.1 Benign prostatic hyperplasia with lower urinary tract symptoms; E11.65 Type 2 diabetes mellitus with hyperglycemia; E11.3313 Type 2 diabetes mellitus with moderate nonproliferative diabetic retinopathy with macular edema, bilateral; D50.0 Iron deficiency anemia secondary to blood loss (chronic)
CPT/HCPCS: 80048; 80053; 82962; 85025; 86850; 86900; 86901; 86920; 87081; 87086; 93005; 97110; 97116; 97162; 97530; J0690; J1644; J1815; J2250; J2270; J2274; J2370; J2405; J2440; J2710; J2765; J2916; J3010; J3480